=== PATIENT | female | born 1975 | race Caucasian/White ===

== ENCOUNTER → 2023-12-24 15:26 | Outpatient (REF) | payer OTHER, SELFPAY | LOC: RAD 15:26 | PROVIDERS: ATTENDING PHYSICIAN Family Medicine | DX: G89.29 Other chronic pain (principal); M54.41 Lumbago with sciatica, right side | CPT/HCPCS: 72110 ==

== ENCOUNTER → 2024-01-10 14:39 | Outpatient (REF) | payer OTHER, SELFPAY | LOC: HWRAD 14:39 | PROVIDERS: ATTENDING PHYSICIAN Student in an Organized Health Care Education/Training Program | DX: H93.8X2 Other specified disorders of left ear (principal) | CPT/HCPCS: 76536 ==

== ENCOUNTER → 2024-03-31 16:19 | Outpatient (REF) | payer OTHER, SELFPAY | LOC: RAD 16:19 | PROVIDERS: ATTENDING PHYSICIAN Student in an Organized Health Care Education/Training Program | DX: R05.9 Cough, unspecified (principal) | CPT/HCPCS: 71101 ==

== ENCOUNTER → 2024-06-20 13:14 | Outpatient (REF) | payer OTHER, SELFPAY | LOC: RAD 13:14 | PROVIDERS: ATTENDING PHYSICIAN Student in an Organized Health Care Education/Training Program | DX: S80.12XD Contusion of left lower leg, subsequent encounter (principal); T14.8XXA Other injury of unspecified body region, initial encounter; M79.89 Other specified soft tissue disorders | CPT/HCPCS: 76882; 93971 ==

== ENCOUNTER → 2024-06-27 14:51 | Outpatient (REF) | payer OTHER, SELFPAY ==
[2024-06-27 17:12] LABS: FSH 53.3 mIU/ml
== END ==
LOC: WDC 14:51
PROVIDERS: ATTENDING PHYSICIAN Obstetrics & Gynecology Gynecology; FAMILY PHYSICIAN Student in an Organized Health Care Education/Training Program
DX: Z12.31 Encounter for screening mammogram for malignant neoplasm of breast (principal); N95.1 Menopausal and female climacteric states
CPT/HCPCS: 36415; 83001; 83002

== ENCOUNTER → 2025-06-29 15:42 | Outpatient (REF) | payer OTHER, SELFPAY | LOC: WDC 15:42 | PROVIDERS: ATTENDING PHYSICIAN Obstetrics & Gynecology Gynecology | DX: Z12.31 Encounter for screening mammogram for malignant neoplasm of breast (principal) | CPT/HCPCS: 77063; 77067 ==